=== PATIENT | female | born 1955 | race Caucasian/White ===

== ENCOUNTER 2017-02-08 09:23 | Outpatient (CLI) ==
[2015-09-13 15:20] VITALS: BMI 22.6
--- NOTE | 2017-02-08 10:00 | DI ---
EXAM: Left hip two-view HISTORY: Left hip pain COMPARISON: None FINDINGS: No fracture or dislocation. Mild narrowing left hip joint. No focal soft tissue abnorma lity. IMPERSSION: Mild osteoarthritis left hip.
== END 2017-02-08 09:24 | disposition home or self-care (01) ==
LOC: RAD 09:23
PROVIDERS: ATTEND Nurse Practitioner
DX: M25.552 Pain in left hip (principal)

== ENCOUNTER 2017-04-17 07:52 | Outpatient (CLI) ==
[2015-09-13 15:20] VITALS: BMI 22.6
--- NOTE | 2017-04-17 08:55 | DEXA ---
EXAM: DEXA scan. HISTORY: Long-term steroid use. COMPARISON: 04/29/2013. TECHNIQUE: Povoo [id number]. DEXA scan lumbar spine performed. Quality of the study is good. BMD is 1.302 grams per square cent imeter. T-score 1.0. Z-score 3.0. DEXA scan hips performed. Quality of the study is good. BMD 0.845 grams per square centimeter. T-s core -1.3. Z-score 0.2. IMPRESSION: According to the World Health Organization classification, lumbar spine bone mineral density is norm al. Hip bone mineral density demonstrates osteopenia, with increased fracture risk. Ten-year major osteoporotic fracture risk is 14.4%. Ten-year hip fracture risk is 3.4%. Since the prior study, t here has been no significant change in bone mineral density.
== END 2017-04-17 07:53 | disposition home or self-care (01) ==
LOC: RAD 07:52
PROVIDERS: ATTEND Internal Medicine Rheumatology
DX: M15.0 Primary generalized (osteo)arthritis (principal); M54.5 Low back pain; M25.552 Pain in left hip; Z78.0 Asymptomatic menopausal state; Z79.52 Long term (current) use of systemic steroids

== ENCOUNTER 2017-05-30 08:30 | Emergency (ER) ==
[2017-05-30 08:38] VITALS: BP 124/72; TEMP 97.5; BMI 22.7
--- NOTE | 2017-05-30 08:54 | ED.PDOC ---
General ED Provider: Dr. CARA GALEANO Chief Complaint: Respiratory Complaint Stated Complaint: Cough with occasional clear sputum x 2 weeks. Fever the first 2 days, none since. Time Seen by Physician: 08:40 Mode of Arrival: Walk-In Information Source: Patient Exam Limitations: No limitations Primary Care Provider: SONIA HILLMAN Nursing and Triage Documentation Reviewed and Agree: Yes Respiratory Complaint Exam - Respiratory Complaint/Exam Onset/Duration: 2 weeks Symptoms Are: Still present Timing: Constant Initial Severity: Moderate Current Severity: Moderate Location: Chest Character: Reports: Productive cough (occasional clear sputum), Non-productive cough Aggravating: Reports: Exertion, Deep breaths Alleviating: Reports: None Associated Signs and Symptoms: Reports: Dyspnea (sometimes feels SOB when coughing), Nasal congestion History of Healthcare-Acquired Pneumonia: No Related Surgical History: Reports: None Pulmonary Embolism Risk Factors: Smoking Pseudomonas Risk Factors: Reports: None Tuberculosis Risk Factors: Reports: Smoking Home Oxygen Use: No Recent Stress Test: No Recent Echo/LV Function: No Current Antibiotic Use: No Current Asthma Medication Use: No Respiratory Distress: None Inadequate Respiratory Effort: No Dysphagia Present: No Stridor Present: No JVD Present: No Accessory Muscle Use: No Retractions: Not Present Diminished Breath Sounds: No Sinus Tenderness: None Grunting Respirations: No Differential Diagnoses: Pneumonia, Bronchitis Review of Systems - Review Of Systems Constitutional: Reports: No symptoms Eyes: Reports: No symptoms Ears, Nose, Mouth, Throat: Reports: Nose discharge (clear rhinorrhea) Respiratory: Reports: Cough, Short of air (occasional SOB) Cardiac: Reports: No symptoms GI: Reports: No symptoms : Reports: No symptoms Musculoskeletal: Reports: No symptoms Skin: Reports: No symptoms Neurological: Reports: No symptoms All Other Systems: Reviewed and Negative Past Medical History - Past Medical History Previously Healthy: Yes Endocrine: Reports: None Cardiovascular: Reports: None Respiratory: Reports: COPD Hematological: Reports: None Gastrointestinal: Reports: None Genitourinary: Reports: None Neuro/Psych: Reports: Other Musculoskeletal: Reports: Arthritis Cancer: Reports: None Last Menstrual Period: hysterectomy Other Pertinent Past Medical History: FIBROMYALGIA, RHEUMATOID ARTHRITIS - Surgical History General Surgical History: Reports: Hysterectomy, Appendectomy, Cholecystectomy - Family History Family History: Reports: Unknown - Social History Smoking Status: Current every day smoker, Heavy tobacco smoker Hx Substance Use: No Alcohol Screening: None Lives: Alone - Immunizations Tetanus Shot up to Date: No Influenza Vaccine within 12 Months: No Pneumococcal Vaccine up to Date: No Physical Exam - Physical Exam Appearance: Well-appearing, No pain distress, Well-nourished Ill-appearing: None Pain Distress: None Eyes: SUSHILA, EOMI, Conjunctiva clear ENT: Nose normal, Oropharynx normal, TMs Occluded (TMs mayo and dull), Rhinorrhea (clear rhinorrhea) Respiratory: Airway patent, Breath sounds equal, Respirations nonlabored, Rhonchi (faint bibasilar rhonchi) Cardiovascular: RRR, Pulses normal, No rub, No murmur GI/: Soft, Nontender, No masses, Bowel sounds normal, No Organomegaly Musculoskeletal: Normal strength, ROM intact, No edema, No calf tenderness Skin: Warm, Dry, Normal color Neurological: Sensation intact, Motor intact, Reflexes intact, Cranial nerves intact, Alert, Oriented Psychiatric: Affect appropriate, Mood appropriate Interpretation - Radiology Interpretation Radiology Interpretation By: Radiologist Radiology Results: No acute changes Exam Interpreted: CXR Xray Comments: COPD, nothing acute Re-Evaluation - Re-Evaluation Time of Re-Evaluation: 09:54 Status: Unchanged Vital Signs Stable: Yes Pain Level: 0 Appearance: NAD Lungs: Clear Skin: Warm and Dry Neuro: Alert and Oriented X3 Additional Comments: cough persists unchanged after neb treatment Critical Care Note - Critical Care Note Total Time (mins): 0 Course - Course Hematology/Chemistry: 05/30/17 09:04 05/30/17 09:04 Orders, Labs, Meds: Lab Review 05/30/17 05/30/17 09:04 09:04 WBC 12.67 H RBC 4.17 L Hgb 12.6 Hct 36.5 L MCV 87.5 MCH 30.2 MCHC 34.5 RDW Coeff of Xi 13.6 Plt Count 389 Immature Gran % (Auto) 0.6 Neut % (Auto) 88.3 Lymph % (Auto) 9.1 L [place] % (Auto) 1.8 Eos % (Auto) 0.0 Baso % (Auto) 0.2 Immature Gran # (Auto) 0.1 Neut # 11.2 H Lymph # 1.2 [place] # 0.2 L Eos # 0.0 Baso # 0.0 Sodium 129 L Potassium 4.0 Chloride 98 Carbon Dioxide 20 L Anion Gap 15.0 BUN 10 Creatinine 0.82 Estimated GFR (MDRD) 70.00 BUN/Creatinine Ratio 12.19 Glucose 114 Calcium 9.5 Total Bilirubin 0.46 AST 13 L ALT 15 Alkaline Phosphatase 65 Total Protein 6.6 Albumin 3.5 Globulin 3.1 Albumin/Globulin Ratio 1.13 Orders Category Date Time Status NEBULIZER TREATMENT Stat CARDIO 05/30/17 09:31 Ordered CBC W/ AUTO DIFF Stat LAB 05/30/17 09:04 Completed COMPREHENSIVE METABOLIC PANEL Stat LAB 05/30/17 09:04 Completed Ipratropium/Albuterol Neb [Duoneb] MEDS 05/30/17 09:31 Discontinued 1 vial NEB ONCE STA CHEST, 2 VIEWS PA & LAT Stat RADS 05/30/17 08:55 Completed Medications Discontinued Medications Generic Name Dose Route Start Last Admin Trade Name Freq PRN Reason Stop Dose Admin Albuterol/Ipratropium 1 vial 05/30/17 09:31 05/30/17 09:42 Duoneb NEB 05/30/17 09:32 1 vial ONCE STA Administration Vital Signs: Temp Pulse Resp BP Pulse Ox 05/30/17 08:31 97.5 F L 75 16 124/72 96 Departure - Departure Time of Disposition: 09:58 Disposition: HOME SELF-CARE Discharge Problem: COPD with exacerbation, Bronchitis Instructions: Acute Bronchitis (ED), COPD (Chronic Obstructive Pulmonary Disease) (ED) Condition: Good Pt referred to PMD for follow-up: No (if no better in 3 days, see doctor) Additional Instructions: off work x 3 days Prescriptions: Azithromycin [Zithromax] 500 mg PO DAILY #5 tablet Allergies/Adverse Reactions: Allergies aspartame Adverse Reaction (Verified 05/30/17 08:42) NSAIDS (Non-Steroidal Anti-Inflamma Adverse Reaction (Verified 05/30/17 08:42) tetracycline [Tetracycline] Adverse Reaction (Verified 05/30/17 08:42) Home Medications: Ambulatory Orders Aspirin [Aspirin Chewable] 81 mg PO DAILY 04/23/13 Cholecalciferol (Vitamin D3) [Vitamin D] 2,000 unit PO BID 04/23/13 Estradiol 2 mg PO DAILY 04/23/13 Fenofibrate 160 mg PO DAILY 04/23/13 Fish Oil/Dha/Epa [Fish Oil 1,200 mg Fish Oil] 1 each PO BID 04/23/13 Loratadine [Claritin] 10 mg PO DAILY 04/23/13 Magnesium 30 mg PO DAILY 04/23/13 Omeprazole [Prilosec] 20 mg PO QDAC 04/23/13 Tramadol HCl [Ultram] 50 mg PO Q4H 04/23/13 Vitamin E 400 unit PO DAILY 04/23/13 Diazepam 5 mg PO DAILY PRN #100 02/09/16 Azithromycin [Zithromax] 500 mg PO DAILY #5 tablet 05/30/17 Cyclobenzaprine HCl [Flexeril] 10 mg PO DIRECTED 05/30/17 Guaifenesin/Codeine Phosphate [Robitussin AC Syrup] 5 ml PO Q4H PRN #120 disp.syrin 05/30/17 Prednisone 10 mg PO DIRECTED 05/30/17 Disposition Discussed With: Patient
[2017-05-30 09:07] LABS: BASOPHILS % (AUTO) 0.2 % (0.0-3.0); HEMATOCRIT 36.5 % (37.0-47.0); HEMOGLOBIN 12.6 g/dl (12.0-16.0); IMMATURE GRANULOCYTE % (AUTO) 0.6 % (0.0-5.0); LYMPHOCYTES # (AUTO) 1.2 K/uL (0.60-3.4); LYMPHOCYTES % (AUTO) 9.1 (10.0-50.0); MEAN CORPUSCULAR HEMOGLOBIN 30.2 pg (27.0-31.0); MEAN CORPUSCULAR HGB CONC 34.5 (31.8-35.4); MEAN CORPUSCULAR VOLUME 87.5 fl (81.0-99.0); MONOCYTES # (AUTO) 0.2 K/uL (0.4-2.0); MONOCYTES % (AUTO) 1.8 (0-10); NEUTROPHILS # (AUTO) 11.2 K/ul (2.0-6.9); NEUTROPHILS % (AUTO) 88.3; PLATELET COUNT 389 10^3/uL (140-440); RED BLOOD COUNT 4.17 10^6/ul (4.20-5.40); WHITE BLOOD COUNT 12.67 K/ul (4.6-10.2)
--- NOTE | 2017-05-30 09:24 | DI ---
Exam: Chest two-view HISTORY: Cough for 2 weeks. Comparison: 10/28/2008. FINDINGS: Two views of the chest demonstrate hyper expanded lungs with no evidence of pneumonia or e lizeth. The heart is normal in size and configuration. The thoracic aorta is partially calcified. Ca lcified granulomata are noted. The pulmonary vasculature is not congested. The skeletal structures a re intact. There are degenerative findings in the spine. IMPRESSION: No acute cardiopulmonary disease. Hyperexpanded lungs consistent with COPD. Atherosclerosis and prior granulomatosis.
[2017-05-30 09:26] LABS: ALBUMIN 3.5 g/dL (3.4-5.0); ALBUMIN/GLOBULIN RATIO 1.13; BILIRUBIN,TOTAL 0.46 mg/dL (0.00-1.20); BUN/CREATININE RATIO 12.19; CALCIUM 9.5 mg/dL (8.2-10.2); CREATININE 0.82 mg/dL (0.60-1.30); TOTAL PROTEIN 6.6 g/dL (5.8-8.1)
[2017-05-30] MEDS ORDERED: DUONEB NEB STA (09:31)
== END 2017-05-30 10:15 | disposition home or self-care (01) ==
LOC: ED 08:30
DX: J44.0 Chronic obstructive pulmonary disease with (acute) lower respiratory infection (principal); J20.9 Acute bronchitis, unspecified; J44.1 Chronic obstructive pulmonary disease with (acute) exacerbation; R06.02 Shortness of breath; F17.210 Nicotine dependence, cigarettes, uncomplicated; Z79.899 Other long term (current) drug therapy
CPT/HCPCS: 36415; 80053; 85025; 94640; 99283

== ENCOUNTER 2017-10-21 14:44 | Emergency (ER) | payer OTHER ==
[2017-10-21 14:49] VITALS: BP 139/55; TEMP 99.1; BMI 22.6
--- NOTE | 2017-10-21 15:21 | ED.PDOC ---
General ED Provider: Dr. KISHORE REILLY Chief Complaint: Cough Stated Complaint: cough Time Seen by Physician: 15:00 Mode of Arrival: Walk-In Information Source: Patient Exam Limitations: No limitations Primary Care Provider: SONIA HILLMAN Nursing and Triage Documentation Reviewed and Agree: Yes Reviewed sepsis parameters & appropriate labs ordered?: Yes System Inflammatory Response Syndrome: Not Applicable Sepsis Protocol: For patient's 13 years and over: Temp is 96.8 and below OR 101 and greater Pulse >90 BPM Resp >20/minute Acutely Altered Mental Status Are patient's symptoms suggestive of a new infection, such as: -Pneumonia -Skin, Soft Tissue -Endocarditis -UTI -Bone, Joint Infection -Implantable Device -Acute Abdominal Infection -Wound Infection -Meningitis -Blood Stream Catheter Infection -Unknown System Inflammatory Response Syndrome: Not Applicable Review of Systems - Review Of Systems Constitutional: Reports: Malaise Eyes: Reports: No symptoms Ears, Nose, Mouth, Throat: Reports: No symptoms Respiratory: Reports: Cough Cardiac: Reports: No symptoms GI: Reports: No symptoms : Reports: No symptoms Musculoskeletal: Reports: No symptoms Skin: Reports: No symptoms Neurological: Reports: No symptoms Endocrine: Reports: No symptoms Hematologic/Lymphatic: Reports: No symptoms All Other Systems: Reviewed and Negative Past Medical History - Past Medical History Previously Healthy: Yes Endocrine: Reports: None Cardiovascular: Reports: None Respiratory: Reports: COPD Hematological: Reports: None Gastrointestinal: Reports: None Genitourinary: Reports: None Neuro/Psych: Reports: Other Musculoskeletal: Reports: Arthritis Cancer: Reports: None Last Menstrual Period: hysterectomy Other Pertinent Past Medical History: FIBROMYALGIA, RHEUMATOID ARTHRITIS - Surgical History General Surgical History: Reports: Hysterectomy, Appendectomy, Cholecystectomy - Family History Family History: Reports: Unknown - Social History Smoking Status: Current every day smoker, Heavy tobacco smoker Hx Substance Use: No Alcohol Screening: None - Immunizations Influenza Vaccine within 12 Months: No Pneumococcal Vaccine up to Date: No Physical Exam - Physical Exam Appearance: Ill-appearing Ill-appearing: Mild Pain Distress: Mild Eyes: SUSHILA, EOMI, Conjunctiva clear ENT: Ears normal, Nose normal, Oropharynx normal Respiratory: Rhonchi, Wheezes Cardiovascular: RRR, Pulses normal, No rub, No murmur GI/: Soft, Nontender, No masses, Bowel sounds normal, No Organomegaly Musculoskeletal: Normal strength, ROM intact, No edema, No calf tenderness Skin: Warm, Dry, Normal color Neurological: Sensation intact, Motor intact, Reflexes intact, Cranial nerves intact, Alert, Oriented Psychiatric: Affect appropriate, Mood appropriate Critical Care Note - Critical Care Note Total Time (mins): 0 Course - Course Orders, Labs, Meds: Orders Category Date Time Status FLU A & B MOLECULAR [FLU A/B MOLECULAR] Stat LAB 10/21/17 15:00 Received MOLECULAR GROUP A STREP Stat LAB 10/21/17 15:00 Received Vital Signs: Temp Pulse Resp BP Pulse Ox 10/21/17 14:44 99.1 F 109 H 20 139/55 L 89 L Departure - Departure Time of Disposition: 15:20 Disposition: HOME SELF-CARE Discharge Problem: Cough, Bronchitis Instructions: Acute Bronchitis (ED), Wheezing (ED), How Your Lungs Work (ED) Condition: Good Pt referred to PMD for follow-up: Yes IPMP verified?: Yes Additional Instructions: Please call your Family Physician as soon as possible to schedule a follow-up appointment. Prescriptions: Azithromycin [Zithromax] 500 mg PO DIRECTED #6 tablet Allergies/Adverse Reactions: Allergies aspartame Adverse Reaction (Verified 10/21/17 14:51) NSAIDS (Non-Steroidal Anti-Inflamma Adverse Reaction (Verified 10/21/17 14:51) tetracycline [Tetracycline] Adverse Reaction (Verified 10/21/17 14:51) Home Medications: Ambulatory Orders Cholecalciferol (Vitamin D3) [Vitamin D] 2,000 unit PO BID 04/23/13 Estradiol 2 mg PO DAILY 04/23/13 Fenofibrate 160 mg PO DAILY 04/23/13 Fish Oil/Dha/Epa [Fish Oil 1,200 mg Fish Oil] 1 each PO BID 04/23/13 Loratadine [Claritin] 10 mg PO DAILY 04/23/13 Magnesium 30 mg PO DAILY 04/23/13 Omeprazole [Prilosec] 20 mg PO QDAC 04/23/13 Tramadol HCl [Ultram] 50 mg PO Q4H 04/23/13 Vitamin E 400 unit PO DAILY 04/23/13 Diazepam 5 mg PO DAILY PRN #100 02/09/16 Cyclobenzaprine HCl [Flexeril] 10 mg PO DIRECTED 05/30/17 Prednisone 10 mg PO DIRECTED 05/30/17 Aspirin/Caffeine [Mary Back & Body Caplet] 1 each PO DIRECTED 10/21/17 Azithromycin [Zithromax] 500 mg PO DIRECTED #6 tablet 10/21/17
== END 2017-10-21 15:27 | disposition home or self-care (01) ==
LOC: ED 14:44
DX: J20.9 Acute bronchitis, unspecified (principal); R05 Cough; R68.89 Other general symptoms and signs; F17.210 Nicotine dependence, cigarettes, uncomplicated; Z79.899 Other long term (current) drug therapy
CPT/HCPCS: 87502; 87651; 99283

== ENCOUNTER 2018-10-31 08:52 | Outpatient (CLI) | payer OTHER ==
--- NOTE | 2018-11-01 10:40 | MAMMO ---
EXAM: Bilateral digital screening mammogram (2-D and 3-D) History: Screening Comparison: Bilateral mammogram 03/01/2015 Findings: MLO and CC views of bilateral breasts demonstrate predominately fatty replaced breast pare nchyma. CAD was reviewed by the radiologist. Tomosynthesis was performed. There are no dominant ma sses, no suspicious microcalcifications and no architectural distortions Impression: Stable negative mammogram. Recommend followup routine screening mammography in 1 year. BIRADS 1, negative
== END 2018-10-31 08:53 | disposition home or self-care (01) ==
LOC: RAD 08:52
PROVIDERS: ATTEND Nurse Practitioner
DX: Z12.31 Encounter for screening mammogram for malignant neoplasm of breast (principal); F41.9 Anxiety disorder, unspecified; J44.9 Chronic obstructive pulmonary disease, unspecified; M25.552 Pain in left hip; M79.7 Fibromyalgia; R68.89 Other general symptoms and signs; Z79.890 Hormone replacement therapy; F17.210 Nicotine dependence, cigarettes, uncomplicated
CPT/HCPCS: 36415; 80053; 80061; 81001; 84443; 85025

== ENCOUNTER 2018-12-06 09:18 | Outpatient (CLI) | END 2018-12-06 09:19 | disposition home or self-care (01) | LOC: LAB 09:18 | PROVIDERS: ATTEND Nurse Practitioner | DX: D72.829 Elevated white blood cell count, unspecified (principal) | CPT/HCPCS: 36415; 85027 ==

== ENCOUNTER 2019-01-16 18:10 | Emergency (ER) ==
[2019-01-16 18:18] VITALS: BP 149/80; TEMP 97.8; BMI 22.2
--- NOTE | 2019-01-16 18:53 | ED.PDOC ---
General ED Provider: Dr. HARPER NANCE-ER Chief Complaint: Respiratory Complaint Stated Complaint: im couhging up some yellow stuff---my copd is acting up Time Seen by Physician: 19:00 Mode of Arrival: Walk-In Information Source: Patient Exam Limitations: No limitations Primary Care Provider: SONIA HILLMAN Nursing and Triage Documentation Reviewed and Agree: Yes Does patient meet sepsis criteria?: No System Inflammatory Response Syndrome: Not Applicable Sepsis Protocol: For patient's 13 years and over: Temp is 96.8 and below OR 101 and greater Pulse >90 BPM Resp >20/minute Acutely Altered Mental Status Are patient's symptoms suggestive of a new infection, such as: -Pneumonia -Skin, Soft Tissue -Endocarditis -UTI -Bone, Joint Infection -Implantable Device -Acute Abdominal Infection -Wound Infection -Meningitis -Blood Stream Catheter Infection -Unknown Respiratory Complaint Exam - Respiratory Complaint/Exam Onset/Duration: 2 days Symptoms Are: Still present Timing: Intermittent Initial Severity: Mild Current Severity: Moderate Location: Chest Character: Reports: Productive cough Aggravating: Reports: URI Associated Signs and Symptoms: Reports: URI, Nasal congestion. Denies: Rapid breathing, Dyspnea Related Surgical History: Reports: None Home Oxygen Use: No Recent Stress Test: No Recent Echo/LV Function: No Current Antibiotic Use: No Current Asthma Medication Use: No Inadequate Respiratory Effort: No Dysphagia Present: No Stridor Present: No JVD Present: No Accessory Muscle Use: No Retractions: Not Present Diminished Breath Sounds: No Sinus Tenderness: None Grunting Respirations: No Kussmaul Respirations: No Differential Diagnoses: COPD Exacerbation Review of Systems - Review Of Systems Constitutional: Reports: No symptoms Eyes: Reports: No symptoms Ears, Nose, Mouth, Throat: Reports: No symptoms Respiratory: Reports: Cough, Wheezing Cardiac: Reports: No symptoms GI: Reports: No symptoms : Reports: No symptoms Musculoskeletal: Reports: No symptoms Skin: Reports: No symptoms Neurological: Reports: No symptoms Endocrine: Reports: No symptoms Hematologic/Lymphatic: Reports: No symptoms All Other Systems: Reviewed and Negative Past Medical History - Past Medical History Previously Healthy: Yes Endocrine: Reports: None Cardiovascular: Reports: None Respiratory: Reports: COPD Hematological: Reports: None Gastrointestinal: Reports: None Genitourinary: Reports: None Neuro/Psych: Reports: Other Musculoskeletal: Reports: Arthritis Cancer: Reports: None Last Menstrual Period: n/a Other Pertinent Past Medical History: FIBROMYALGIA, RHEUMATOID ARTHRITIS - Surgical History General Surgical History: Reports: Hysterectomy, Appendectomy, Cholecystectomy - Family History Family History: Reports: Unknown - Social History Smoking Status: Current every day smoker, Heavy tobacco smoker Hx Substance Use: No Alcohol Screening: None - Immunizations Influenza Vaccine within 12 Months: No Pneumococcal Vaccine up to Date: No Physical Exam - Physical Exam Appearance: Well-appearing Eyes: SUSHILA ENT: Ears normal, Nose normal, Oropharynx normal Neck: Supple Respiratory: Rhonchi Cardiovascular: RRR, Pulses normal, No rub, No murmur GI/: Soft, Nontender, No masses, Bowel sounds normal, No Organomegaly Musculoskeletal: Normal strength, ROM intact, No edema, No calf tenderness Skin: Warm, Dry, Normal color Neurological: Sensation intact, Motor intact, Reflexes intact, Cranial nerves intact, Alert, Oriented Psychiatric: Affect appropriate, Mood appropriate Critical Care Note - Critical Care Note Total Time (mins): 0 Course - Course Vital Signs: Temp Pulse Resp BP Pulse Ox 01/16/19 18:11 97.8 F 88 20 149/80 H 98 Departure - Departure Time of Disposition: 18:53 Disposition: HOME SELF-CARE Discharge Problem: COPD with exacerbation Instructions: COPD (Chronic Obstructive Pulmonary Disease) (ED) Condition: Good Pt referred to PMD for follow-up: Yes IPMP verified?: No Additional Instructions: augmenitn 875mg bid x 7 days--medrol dose pack--dont take prednisone if taking medrol---stop smoking--see pmd if not improving Allergies/Adverse Reactions: Allergies aspartame Adverse Reaction (Verified 01/16/19 18:18) NSAIDS (Non-Steroidal Anti-Inflamma Adverse Reaction (Verified 01/16/19 18:18) tetracycline [Tetracycline] Adverse Reaction (Verified 01/16/19 18:18) Home Medications: Ambulatory Orders Estradiol 2 mg PO DAILY 04/23/13 Loratadine [Claritin] 10 mg PO DAILY 04/23/13 Omeprazole [Prilosec] 20 mg PO QDAC 04/23/13 Tramadol HCl [Ultram] 50 mg PO Q4H 04/23/13 Diazepam 5 mg PO DAILY PRN #100 02/09/16 Cyclobenzaprine HCl [Flexeril] 10 mg PO DIRECTED 05/30/17 Prednisone 10 mg PO DIRECTED 05/30/17 Aspirin/Caffeine [Mary Back & Body Caplet] 1 each PO DIRECTED 10/21/17 Disposition Discussed With: Patient
== END 2019-01-16 19:00 | disposition home or self-care (01) ==
LOC: ED 18:10
DX: J44.1 Chronic obstructive pulmonary disease with (acute) exacerbation (principal); F17.210 Nicotine dependence, cigarettes, uncomplicated
CPT/HCPCS: 99282

== ENCOUNTER 2019-02-03 12:50 | Outpatient (CLI) ==
[2019-02-03 17:22] VITALS: BMI 21.9
== END 2019-02-03 13:07 | disposition critical access hospital (66) ==
LOC: AMBL 12:50
PROVIDERS: ATTEND Internal Medicine
DX: R06.02 Shortness of breath (principal); R06.2 Wheezing; J44.9 Chronic obstructive pulmonary disease, unspecified

== ENCOUNTER 2019-02-03 13:14 | Inpatient (IN) | payer OTHER ==
[2019-02-03] MEDS ORDERED: DUONEB NEB STA (13:52)
[2019-02-03] MEDS ORDERED: DECADRON 4 MG/ML SDV IM STA (13:52)
[2019-02-03] MEDS ORDERED: ZITHROMAX PO STA (13:53)
[2019-02-03] MEDS ORDERED: DECADRON 4 MG/ML SDV IVP STA (13:56)
--- NOTE | 2019-02-03 14:25 | CT ---
EXAM: CT of the chest without contrast History: Short of breath, cough. Comparison: Chest radiograph 05/30/2017 Technique: Multiplanar CT images through the chest were obtained without the administration of IV co ntrast Findings: Heart size is normal. No pericardial effusion. No thoracic aortic aneurysm. Atheroscler otic vascular calcifications of the thoracic aorta. No axillary lymphadenopathy. No pathologically enlarged mediastinal or hilar lymph nodes. Moderate emphysema. No pleural fluid and no pneumothorax . No consolidation. A few right lower lobe pleural-based nodules measuring up to 6 mm. Within the visualized upper abdomen, status post cholecystectomy. 3.1 cm hepatic cyst. Small simple right renal cyst. No acute osseous abnormalities. Severe degenerative disc disease within the lowe r cervical spine. Impression: 1. No acute intrathoracic process. 2. Moderate emphysema. 3. Indeterminate sub-centimeter right lower lobe pleural-based lung nodules. Recommend follow-up est CT in 6 months
[2019-02-03] MEDS ORDERED: SODIUM CHLORIDE 1,000 ML IV STA (14:55)
--- NOTE | 2019-02-03 16:04 | CT ---
EXAM: CTA of the chest. History: Short of breath Comparison: Chest CT 02/03/2019 Technique: Multiplanar CT images through the thorax were obtained following administration of IV con trast. The MIP images and 3-D reconstructions were also acquired. Findings: Heart size is normal. No pericardial effusion. No thoracic aortic aneurysm and no aortic dissection. No pulmonary embolism. No pathologically enlarged thoracic lymph nodes. Moderate emph ysema. No consolidation. No pleural fluid and no pneumothorax. Stable subcentimeter pleural-based right lower lobe lung nodules. No developing lung nodules. Within the visualized upper abdomen, simple hepatic and right renal cyst again noted. No acute osseo us abnormalities. Degenerative changes within the cervical spine again seen. Impression: 1. No pulmonary embolism and no evidence for pneumonia. 2. No thoracic aortic aneurysm and no aortic dissection. 3. Moderate emphysema. 4. No change in the sub-centimeter right lower lobe pleural-based lung nodules. Recommend follow-up chest CT in 6 months
--- NOTE | 2019-02-03 16:26 | ED.PDOC ---
General ED Provider: Dr. KISHORE REILLY Chief Complaint: Shortness of Air Stated Complaint: shortness of breath IS REPORTED BY THE PT. SHE ADMITTED TO SMOKING A PAST MEDICAL HX /O C.O.P.D. Time Seen by Physician: 13:14 (DENIED CHEST PAIN RN PRESENT (January)) Mode of Arrival: Ambulance Information Source: Patient Exam Limitations: No limitations Primary Care Provider: SONIA HILLMAN Nursing and Triage Documentation Reviewed and Agree: Yes Does patient meet sepsis criteria?: No System Inflammatory Response Syndrome: Not Applicable Sepsis Protocol: For patient's 13 years and over: Temp is 96.8 and below OR 101 and greater Pulse >90 BPM Resp >20/minute Acutely Altered Mental Status Are patient's symptoms suggestive of a new infection, such as: -Pneumonia -Skin, Soft Tissue -Endocarditis -UTI -Bone, Joint Infection -Implantable Device -Acute Abdominal Infection -Wound Infection -Meningitis -Blood Stream Catheter Infection -Unknown Respiratory Complaint Exam - Respiratory Complaint/Exam Symptoms Are: Still present Timing: Intermittent Initial Severity: Moderate Current Severity: Mild Location: Nose, Throat Character: Reports: Non-productive cough Aggravating: Reports: URI Alleviating: Reports: Bronchodilators, Upright position, Spontaneous resolution Associated Signs and Symptoms: Reports: URI, Nasal congestion. Denies: Rapid breathing, Dyspnea, Fever, Chills, Chest pain, Pleuritic chest pain, Wheezing, Hemoptysis, Dizziness, Calf pain, Calf swelling, Edema, Hoarseness, Sinus discomfort, Vomiting, Sore throat, Weight loss, Decreased oral intake, Increased thirst, Increased appetite, Increased urination Related History: Reports: Similar episode History of Healthcare-Acquired Pneumonia: No Related Surgical History: Reports: None Pulmonary Embolism Risk Factors: Bedrest, Smoking Cardiac Risk Factors: Reports: None, Smoking Pseudomonas Risk Factors: Reports: Chronic Lung Disease Tuberculosis Risk Factors: Reports: None Status Asthmaticus Risk Factors: Reports: None Home Oxygen Use: No Recent Stress Test: No Recent Echo/LV Function: No Current Antibiotic Use: No Current Asthma Medication Use: Yes (albuterol) Respiratory Distress: None Inadequate Respiratory Effort: No Dysphagia Present: No Stridor Present: No JVD Present: No Accessory Muscle Use: No Retractions: Not Present Diminished Breath Sounds: Yes Sinus Tenderness: None Grunting Respirations: No Kussmaul Respirations: No Differential Diagnoses: COPD Exacerbation, Pneumonia, Pulmonary Embolism, Bronchitis Non-Traumatic Chest Pain Syncope: EKG Performed Review of Systems - Review Of Systems Constitutional: Reports: Malaise Eyes: Reports: No symptoms Ears, Nose, Mouth, Throat: Reports: No symptoms Respiratory: Reports: Cough, Short of air, Wheezing Cardiac: Reports: No symptoms GI: Reports: No symptoms : Reports: No symptoms Musculoskeletal: Reports: No symptoms Skin: Reports: No symptoms Neurological: Reports: No symptoms Endocrine: Reports: No symptoms Hematologic/Lymphatic: Reports: No symptoms All Other Systems: Reviewed and Negative Past Medical History - Past Medical History Previously Healthy: Yes Endocrine: Reports: None Cardiovascular: Reports: None Respiratory: Reports: COPD Hematological: Reports: None Gastrointestinal: Reports: None Genitourinary: Reports: None Neuro/Psych: Reports: Other Musculoskeletal: Reports: Arthritis Cancer: Reports: None Last Menstrual Period: none Other Pertinent Past Medical History: FIBROMYALGIA, RHEUMATOID ARTHRITIS - Surgical History General Surgical History: Reports: Hysterectomy, Appendectomy, Cholecystectomy - Family History Family History: Reports: Unknown - Social History Smoking Status: Current every day smoker, Heavy tobacco smoker Hx Substance Use: No Alcohol Screening: None - Immunizations Influenza Vaccine within 12 Months: No Pneumococcal Vaccine up to Date: No Physical Exam - Physical Exam Appearance: Ill-appearing Ill-appearing: Mild Pain Distress: Mild Eyes: SUSHILA, EOMI, Conjunctiva clear ENT: Ears normal, Nose normal, Oropharynx normal Respiratory: Breath sounds diminished, Wheezes Cardiovascular: RRR, Pulses normal, No rub, No murmur GI/: Soft, Nontender, No masses, Bowel sounds normal, No Organomegaly Musculoskeletal: Normal strength, ROM intact, No edema, No calf tenderness Skin: Warm, Dry, Normal color Neurological: Sensation intact, Motor intact, Reflexes intact, Cranial nerves intact, Alert, Oriented Psychiatric: Affect appropriate, Mood appropriate Interpretation - Radiology Interpretation Radiology Interpretation By: Radiologist Radiology Results: No acute changes (NO P.E. NO PNEUMONIA) Re-Evaluation - Re-Evaluation Time of Re-Evaluation: 14:00 Status: Improved Vital Signs Stable: Yes Pain Level: 0 Appearance: NAD Lungs: Clear Skin: Warm and Dry Neuro: Alert and Oriented X3 CV: RRR - Re-Evaluation Time of Re-Evaluation: 15:00 Status: Improved Vital Signs Stable: Yes Pain Level: 0 Appearance: NAD Skin: Warm and Dry Neuro: Alert and Oriented X3 CV: RRR Physician Notification - Case Discussed Physician Notified: OLENA HOLGUIN Time of Notification: 16:37 Admit/Transition Orders Entered by ED Provider: Yes Admit To: Inpatient Critical Care Note - Critical Care Note Total Time (mins): 0 Course - Course Hematology/Chemistry: 02/03/19 14:27 02/03/19 14:27 Orders, Labs, Meds: Lab Review 02/03/19 02/03/19 02/03/19 13:51 14:27 14:27 WBC 6.41 RBC 4.18 L Hgb 12.3 Hct 37.7 MCV 90.2 MCH 29.4 MCHC 32.6 RDW Coeff of Xi 12.9 Plt Count 475 H Immature Gran % (Auto) 0.3 Neut % (Auto) 55.1 Lymph % (Auto) 31.2 [place] % (Auto) 8.9 Eos % (Auto) 3.4 Baso % (Auto) 1.1 Immature Gran # (Auto) 0.0 Neut # (Auto) 3.5 Lymph # (Auto) 2.0 [place] # (Auto) 0.6 Eos # (Auto) 0.2 Baso # (Auto) 0.1 Puncture Site Rrad O2 Saturation 93.0 L ABG pH 7.393 ABG pCO2 40.0 ABG pO2 67.0 L ABG HCO3 24.4 ABG Total CO2 26 ABG Base Excess -1 Paul Test + FiO2 % 21.0 Sodium 135.3 Potassium 3.93 Chloride 99.9 Carbon Dioxide 28.2 Anion Gap 11.13 BUN 8.1 Creatinine 0.70 Estimated GFR (MDRD) 84.00 BUN/Creatinine Ratio 11.57 Glucose 94.5 Calcium 9.30 Total Bilirubin 0.44 AST 18.3 ALT 11.6 Alkaline Phosphatase 91.0 Total Creatine Kinase 83.2 Troponin I < 0.012 Total Protein 6.63 Albumin 3.99 Globulin 2.64 Albumin/Globulin Ratio 1.51 Orders Category Date Time Status ABG DRAW REQUEST Stat CARDIO 02/03/19 13:51 Completed EKG-(ED ONLY) Stat CARDIO 02/03/19 13:50 Completed NEBULIZER TREATMENT Stat CARDIO 02/03/19 13:53 Completed NPO REMINDER: IMAGING ONCE CARE 02/03/19 15:18 Active ED IV/MEDIPORT/POWERPORT .ONCE EMERGENCY 02/03/19 14:55 Active ABG Stat LAB 02/03/19 13:51 Completed CBC W/ AUTO DIFF Stat LAB 02/03/19 14:27 Completed COMPREHENSIVE METABOLIC PANEL Stat LAB 02/03/19 14:27 Completed CREATINE KINASE Stat LAB 02/03/19 14:27 Completed TROPONIN I Stat LAB 02/03/19 14:27 Completed 0.9 % Sodium Chloride [Saline Flush] MEDS 02/03/19 14:55 Ordered 1 syr IVF PRN PRN Azithromycin [Zithromax] MEDS 02/03/19 13:53 Discontinued 1,000 mg PO ONCE STA Dexamethasone 4 mg/ml Inj [Decadron 4 mg/ml Sdv] MEDS 02/03/19 13:56 Discontinued 8 mg IVP ONCE STA Ipratropium/Albuterol Neb [Duoneb] MEDS 02/03/19 13:52 Discontinued 1 vial NEB ONCE STA Sodium Chloride 0.9% [Sodium Chloride] 1,000 ml MEDS 02/03/19 14:55 Active IV 125 mls/hr CT CHEST PE PROTOCOL Stat RADS 02/03/19 15:[address] CHEST W/O CONTRAST Stat RADS 02/03/19 13:50 Completed Medications Generic Name Dose Route Start Last Admin Trade Name Freq PRN Reason Stop Dose Admin Sodium Chloride 1,000 mls @ 125 mls/hr 02/03/19 14:55 02/03/19 15:25 Sodium Chloride IV 02/03/19 22:54 125 mls/hr .Q8H STA Administration Sodium Chloride 1 syr 02/03/19 14:55 Saline Flush IVF PRN PRN To flush IV Discontinued Medications Generic Name Dose Route Start Last Admin Trade Name Freq PRN Reason Stop Dose Admin Albuterol/Ipratropium 1 vial 02/03/19 13:52 02/03/19 14:19 Duoneb NEB 02/03/19 13:53 1 vial ONCE STA Administration Azithromycin 1,000 mg 02/03/19 13:53 02/03/19 14:20 Zithromax PO 02/03/19 13:54 1,000 mg ONCE STA Administration Dexamethasone Sodium Phosphate 8 mg 02/03/19 13:56 02/03/19 14:18 Decadron 4 Mg/Ml Sdv IVP 02/03/19 13:57 8 mg ONCE STA Administration Vital Signs: Temp Pulse Resp BP Pulse Ox 02/03/19 13:14 97.3 F L 113 H 24 123/73 93 L Departure - Departure Time of Disposition: 16:37 Disposition: ADMITTED INPATIENT Discharge Problem: COPD with exacerbation Instructions: COPD (Chronic Obstructive Pulmonary Disease) (ED), How Your Lungs Work (ED), Dyspnea Scale and Exercise (ED) Condition: Good Pt referred to PMD for follow-up: Yes IPMP verified?: No Additional Instructions: Please call your Family Physician as soon as possible to schedule a follow-up appointment. Allergies/Adverse Reactions: Allergies aspartame Adverse Reaction (Verified 02/03/19 13:21) NSAIDS (Non-Steroidal Anti-Inflamma Adverse Reaction (Verified 02/03/19 13:21) tetracycline [Tetracycline] Adverse Reaction (Verified 02/03/19 13:21) Home Medications: Ambulatory Orders Estradiol 2 mg PO DAILY 04/23/13 Loratadine [Claritin] 10 mg PO DAILY 04/23/13 Omeprazole [Prilosec] 20 mg PO QDAC 04/23/13 Tramadol HCl [Ultram] 50 mg PO Q4H 04/23/13 Diazepam 5 mg PO DAILY PRN #100 02/09/16 Cyclobenzaprine HCl [Flexeril] 10 mg PO DIRECTED 05/30/17 Prednisone 10 mg PO DIRECTED 05/30/17 Aspirin/Caffeine [Mary Back & Body Caplet] 1 each PO DIRECTED 10/21/17 Albuterol Sulfate [Proair Hfa] 2 puff IH PRN PRN 02/03/19 Ipratropium/Albuterol Sulfate [Combivent Respimat Inhal Blain] 1 - 2 spray IH PRN PRN 02/03/19
[2019-02-03] MEDS ORDERED: ASPIRIN PO SCH (16:45)
[2019-02-03] MEDS ORDERED: CAFFEINE PO SCH (16:45)
[2019-02-03] MEDS: DUONEB NEB SCH ×2 (17:05→23:00)
[2019-02-03 17:22] VITALS: BMI 21.9
[2019-02-03] MEDS: SOLU-MEDROL 125 MG IVP SCH ×2 (17:34→20:49)
[2019-02-04] MEDS: VALIUM PO PRN ×2 (00:32→22:54)
[2019-02-04] MEDS: SOLU-MEDROL 125 MG IVP SCH ×3 (05:04→21:18)
[2019-02-04] MEDS: DUONEB NEB SCH ×4 (05:05→22:25)
[2019-02-04] MEDS: ROCEPHIN 1 GM in SODIUM CHLORIDE 50 ML IV SCH (11:34)
[2019-02-04] MEDS ORDERED: ESTRADIOL 2 MG PO SCH (17:45)
[2019-02-04] MEDS: PRILOSEC PO SCH (18:16)
[2019-02-04] MEDS: LOVENOX SUBCUT SCH (21:19)
[2019-02-05] MEDS: SOLU-MEDROL 125 MG IVP SCH ×2 (04:57→12:59)
[2019-02-05] MEDS: DUONEB NEB SCH ×2 (05:00→11:00)
[2019-02-05] MEDS: PRILOSEC PO SCH (05:31)
[2019-02-05] MEDS: LOVENOX SUBCUT SCH (08:23)
[2019-02-05] MEDS: ROCEPHIN 1 GM in SODIUM CHLORIDE 50 ML IV SCH (08:23)
[2019-02-05] MEDS ORDERED: ESTRADIOL 2 MG PO SCH (09:00)
[2019-02-05] MEDS ORDERED: ESTRADIOL PO SCH ×2 (09:00→17:00)
[2019-02-05 15:17] VITALS: BP 120/68; TEMP 98.6
--- NOTE | 2019-02-10 14:06 | DS ---
DATE OF SERVICE: 02/05/19 HOSPITAL COURSE: Mrs. Negron is a pleasant 63 year old patient of Dr. Shelbi Villanueva was admitted through the emergency department after an ongoing issue with increasing shortness of breath and she was admitted for a diagnosis COPD exacerbation. She was started on IV steroids as well as antibiotics. She was given DUO NEBS and is strongly encouraged to stop smoking. Her symptoms have gradually improved throughout the hospital course. She has been able to take a deep breath which she hasn't been able to do for the past month. Today her oxygen was checked on room air and I just spoke with the nursing staff and her oxygen was 95% on room air after 30 minutes off of oxygen. Today her temperature afebrile at 97.9, pulse rate 92, blood pressure 106/60, respiratory rate 24 and another O2 saturation on room air was 99%. She is anxious to go home and understands the importance of making a followup appointment this week with her primary care provider. She will discharge home on her home medications. She was will be given a prescription for Prednisone and she takes a 10mg dose daily as needed. We will give her #15 and she also will be given a prescription for Cefdinir 300mg #6 to take PO every 12 hours for three days. Discharge diet is diet as tolerated. Activity level is as tolerated with an encouragement to increase in her activity. It has been strongly encouraged that she continue smoking cessation. She is again been encouraged to make her primary care provider appointment ALETHEA preferably by this Sunday for followup. No referrals were needed at discharge. Her discharge condition is good and she will be discharged home with self care. FINAL DIAGNOSES: 1. COPD exacerbation 2. Shortness of breath and hypoxia with pO2 67 and O2 saturation 93 per ABG's on admission. 3. Fibromyalgia 4. Tobacco use TIME SPENT: GREATER THAN 30 MINUTES MTDD
--- NOTE | 2019-02-12 13:59 | HP ---
DATE OF SERVICE: 02/03/19 CHIEF COMPLAINT: Shortness of breath. HISTORY OF PRESENT ILLNESS: Ms. Negron is a pleasant 63-year-old patient whose primary care provider is Shelbi Villanueva which is a nurse practitioner in [place]. She presented to the emergency department via ambulance with complaints of shortness of breath. She tells me today that her symptoms started back on January 11 when she began having a fibromyalgia flare. On January 16 she did present for an emergency department visit where she was diagnosed with COPD exacerbation. She was given one week of antibiotics and she was given a steroid injection and sent home on a steroid pack. She reports that two days prior to completing the antibiotic prescription she began getting a sore throat and then the dyspnea and shortness of breath began getting worse. Four days ago she reports "no air was going in or out". She did call EMS services to come and get her and that is when she was brought to [facility] Emergency Department. she did have a CT of the chest with and without contrast completed that did show no pulmonary embolism and no evidence for pneumonia. No thoracic aortic aneurysm and no aortic dissection. It did show moderate emphysema and no change in the subcentimeter right lower lobe pleural based lung nodules with recommendations for followup of chest CT in six months[address] of the chest with IV contrast did show moderate emphysema with indeterminate subcentimeter right lower lobe pleural based lung nodules with recommendations for followup CT of the chest in six months. Labs are completed on admission did show a normal white count. Her hemoglobin and hematocrit were normal and her platelet count was 475. Her blood gases showed a p02 of 67, an 02 saturation of 93%. Her chemistry panel was normal with a negative troponin level. Her vital signs on admission: Temperature 97.3, pulse rate 113, blood pressure 123/73, respiratory rate 24 and an 02 sat of 93%. Height 5'1, weight 123 lbs. PAST MEDICAL HISTORY: Includes COPD and fibromyalgia. Also listed back in past medical records includes rheumatoid arthritis. PAST SURGICAL HISTORY: Cholecystectomy, appendectomy and hysterectomy. FAMILY HISTORY: Includes family history of cancer reported. SOCIAL HISTORY: She reports a history of tobacco use for greater than 40 years. No reports of substance abuse and no reports of alcohol use. MEDICATIONS: (HOME) Prilosec 20 mg daily, Estradiol 2 mg daily, Tramadol 50 mg every four hours as needed, Claritin 10 mg daily, Diazepam 5 mg daily, Prednisone 10 mg daily, Flexeril 10 mg daily, aspirin with caffeine one p.o. daily, Albuterol Sulfate, ProAir HFA two puffs inhalation as needed, Ipratropium, Albuterol, Combivent inhalation one to two inhalations as needed. ALLERGIES: ASPARTAME, NSAIDS AND TETRACYCLINE REVIEW OF SYSTEMS: CONSTITUTIONAL: No reports of fever or chills. No reports of significant fatigue. MESMERIST: No reports of headache. No reports of dizziness or ataxia. AUDITORY: No reports of hearing loss. RESPIRATORY: She does report increasing shortness of breath and dyspnea since January 11. CARDIOVASCULAR: No reports of chest pain. No reports of palpitations. Does report increasing shortness of breath. No reports of lower extremity swelling. GASTROINTESTINAL: No reports of nausea, abdominal pain, constipation, diarrhea or blood in the stool. GENITOURINARY: No reports of dysuria or pelvic pain. MUSCULOSKELETAL: She does report chronic fibromyalgia and fibro flares as well as history of rheumatoid arthritis. ENDOCRINE: Negative. INTEGUMENT: No reports of rash or pruritus. HEMATOLOGIC: Negative. PSYCHIATRIC: No reports of insomnia, anxiety or depression. PHYSICAL EXAMINATION: GENERAL: This patient is a pleasant 63-year-old patient that presented to the emergency department with complaints of dizziness, COPD exacerbation. These symptoms have been ongoing since January [id number] that had failed on outpatient treatment. VITAL SIGNS: On admission, include temperature of 97.3, pulse rate 113, blood pressure 123/73, 02 sat 93%. Height 5'1, weight 123 lbs. HEAD: Unremarkable. Face is symmetrical and equal with no facial weakness, no tenderness in the frontal or maxillary sinus areas. EYES: Pupils equal/reactive to light, 3 mm in size. Conjunctivae not pale. Sclerae not icteric. Ears: External ears within normal limits. MOUTH: She has dentures both upper and lower throughout. No inflammation, no tumors and no exudate. THROAT: No inflammation, tumors or exudate. NECK: No masses. No bruit. No tenderness. No rigidity. CHEST: Symmetrical and equal. No tenderness. LUNGS: Sounds are remarkably diminished bilaterally. Very little air exchange. HEART: Audible and regular. Normal sinus rhythm. No murmurs. ABDOMEN: Flat, soft, no abdominal tenderness. No bruits. EXTERNAL GENITALIA: Not examined. ASSESSMENT: 1. COPD EXACERBATION. 2. SHORTNESS OF BREATH. 3. HYPOXIA. 4. FIBROMYALGIA. 5. HISTORY OF CHOLECYSTECTOMY. 6. HISTORY OF APPENDECTOMY. 7. HISTORY OF HYSTERECTOMY. PLAN: 1. Continue IV antibiotics as well as IV steroids and Duonebs. 2. The patient was encouraged strongly to continue not smoking. 3. We will continue to follow labs and follow this patient closely inpatient and further orders and recommendations per Dr. Henry. TIME SPENT: GREATER THAN 65 MINUTES MTDD
== END 2019-02-05 16:15 | disposition home or self-care (01) | DRG 192 ==
LOC: ED 13:14 → MEDSURG B 16:38
PROVIDERS: ADMIT General Practice; ATTEND General Practice
DX: J44.1 Chronic obstructive pulmonary disease with (acute) exacerbation (principal); J06.9 Acute upper respiratory infection, unspecified; M79.7 Fibromyalgia; R05 Cough; R09.81 Nasal congestion; R53.81 Other malaise; R06.2 Wheezing; R09.02 Hypoxemia; Z72.0 Tobacco use
CPT/HCPCS: 36415; 80053; 82550; 82803; 84484; 85007; 85025; 93005; 93010; 94640; 96361; 96374; 99284